=== PATIENT | male | born 1965 | race African-American/Black ===

== ENCOUNTER 2019-08-03 12:50 | Emergency (ER) | payer OTHER, SELFPAY ==
[2019-08-03 13:35] LABS: Hemoglobin 13.9 g/dL (14.0-18.0); Mean Corpuscular HGB CONC 32.7 g/dL (32.0-36.0); Mean Corpuscular Hemoglobin 29.1 pg (27.0-31.0); Mean Corpuscular Volume 89.1 fL (78.0-98.0); Mean Platelet Volume 10.7 fL (7.4-10.4); Platelet Count 126 thou/uL (130-400); RBC Distribution Width 12.8 % (11.5-14.5); Red Blood Cell (RBC) Count 4.76 mill/uL (4.70-6.10); White Blood Cell (WBC) Count 3.1 thou/uL (4.8-10.8)
[2019-08-03 13:56] LABS: Eosinophils 3 % (0-10); Large Platelets SLIGHT; Lymphocytes 50 % (21-51); MDiff Complete? YES; Monocytes 8 % (0-10); Neutrophil 28 % (42-75); Platelet Morphology Comment Appears Decreased; RBC Morphology Normal; Reactive Lymphocytes 9 % (0-10)
[2019-08-03] MEDS ORDERED: Ketorolac Tromethamine 30 MG/ML VIAL ONE (13:58)
[2019-08-03 14:02] LABS: ALT (SGPT) 13 U/L (8-55); AST (SGOT) 14 U/L (5-34); Albumin 4.5 g/dL (3.5-5.0); Alkaline Phosphatase 49 U/L (40-110); Anion Gap 9 mmol/L (10-20); BUN (Urea Nitrogen) 15 mg/dL (8.4-25.7); Bilirubin, Total 0.7 mg/dL (0.2-1.2); Calc. Creatinine Clearance 0 mL/min (70-130); Calcium 9.3 mg/dL (7.8-10.44); Carbon Dioxide 31 mmol/L (22-29); Chloride 102 mmol/L (98-107); Estimated GFR-MDRD 78; Globulin 2.7 g/dL (2.4-3.5); Glucose 80 mg/dL (70-105); Lipase 5 U/L (8-78); Potassium 4.3 mmol/L (3.5-5.1); Protein, Total 7.2 g/dL (6.0-8.3); Sodium 138 mmol/L (136-145)
== END 2019-08-03 14:59 | disposition home or self-care (01) ==
LOC: ERS 12:50
DX: S16.1XXA Strain of muscle, fascia and tendon at neck level, initial encounter (principal); I10 Essential (primary) hypertension; Z79.899 Other long term (current) drug therapy; V49.40XA Driver injured in collision with unspecified motor vehicles in traffic accident, initial encounter
CPT/HCPCS: 36415; 80053; 83690; 84484; 85025; 93005; 96374; J1885

== ENCOUNTER 2022-08-19 14:30 | Inpatient (IN) | payer OTHER, SELFPAY ==
[~2022-08-19 14:30] MED LIST: Iopamidol-370 76% 500 ML 1 ML ONE
[2022-08-19 15:05] LABS: #Eosinphils 0.1 thou/uL (0.0-0.7); #Lymphocytes 2.5 thou/uL (1.20-3.40); #Monocytes 0.5 thou/uL (0.11-0.59); #Neutrophils 3.2 thou/uL (1.40-6.50); %Basophils 0.5 % (0.0-1.0); %Eosinophils 1.2 % (0.0-10.0); %Lymphocytes 39.2 % (21.0-51.0); %Monocytes 7.7 % (0.0-10.0); %Neutrophils 51.5 % (42.0-75.0); Hemoglobin 14.7 g/dL (14.0-18.0); Mean Corpuscular HGB CONC 33.7 g/dL (32.0-36.0); Mean Corpuscular Hemoglobin 30.4 pg (27.0-31.0); Mean Corpuscular Volume 90.3 fl (78.0-98.0); Mean Platelet Volume 10.5 fL (7.4-10.4); Platelet Count 115 10x3/uL (130-400); RBC Distribution Width 13.5 % (11.5-14.5); Red Blood Cell (RBC) Count 4.82 mill/uL (4.70-6.10); White Blood Cell (WBC) Count 6.3 10x3/uL (4.8-10.8)
[2022-08-19 15:13] LABS: ALT (SGPT) 20 U/L (8-55); AST (SGOT) 24 U/L (5-34); Albumin 4.2 g/dL (3.5-5.0); Alkaline Phosphatase 46 U/L (40-110); Anion Gap 14 mmol/L (10-20); BUN (Urea Nitrogen) 19 mg/dL (8.4-25.7); Bilirubin, Total 0.8 mg/dL (0.2-1.2); Calc. Creatinine Clearance 0 mL/min (70-130); Calcium 8.9 mg/dL (7.8-10.44); Carbon Dioxide 24 mmol/L (22-29); Chloride 100 mmol/L (98-107); Estimated GFR 47; Glucose 131 mg/dL (70-105); Potassium 3.7 mmol/L (3.5-5.1); Protein, Total 7.2 g/dL (6.0-8.3); Sodium 134 mmol/L (136-145)
[2022-08-19] MEDS ORDERED: Morphine 2 MG/ML VIAL ONE (15:16)
[2022-08-19 15:20] LABS: Acetaminophen Less than 10.0 mcg/mL (10.0-30.0); Alcohol 32 mg/dL (Less than 10); CK (CPK) 152 U/L (30-200); Salicylate Less than 8.0 mg/dL (15.0-30.0)
[2022-08-19] MEDS ORDERED: NOREPINEPHRINE 8 MG/250 ML-D5W 250 ML ONE (15:44)
[2022-08-19] MEDS ORDERED: Midazolam HCl 2 mg/2 ml Vial ONE (16:02)
[2022-08-19 16:09] LABS: Bilirubin Negative (Negative); Blood, Urine Negative (Negative); Clarity Clear (Clear); Glucose, Urine (Dipstick) Normal (Negative); Ketone, Urine Negative (Negative); Leukocyte Negative Leu/uL (Negative); Nitrite Negative (Negative); Protein, Urine (Dipstick) 10 mg/dL (Neg-Trace); Specific Gravity, Urine 1.016 (1.002-1.036); Urobilinogen Normal mg/dL (Less than 2)
[2022-08-19] MEDS ORDERED: Bupivacaine HCl 0.5%/Epinephrine 1:200,000/PF 30 ml Vial ONE (16:12)
[2022-08-19] MEDS ORDERED: Thrombin 5000 UNITS/5 ML VIAL ONE (16:12)
[2022-08-19] MEDS ORDERED: fentaNYL PF 100 MCG/2 ML SYRINGE ONE (16:13)
[2022-08-19] MEDS ORDERED: HYDROmorphone 0.5 MG/0.5 ML SYRINGE ONE (16:14)
[2022-08-19] MEDS ORDERED: SUGAMMADEX SODIUM 200 MG/2 ML VIAL ONE (16:14)
[2022-08-19 16:17] LABS: Amphetamine Not Detected (NotDetected); Barbiturates Screen Not Detected (NotDetected); Benzodiazepine Screen Not Detected (NotDetected); Cocaine Metabolite Screen Not Detected (NotDetected); Methadone Not Detected (NotDetected); Methamphetamine Not Detected (NotDetected); Opiate Screen Not Detected (NotDetected); Oxycodone Screen Not Detected (NotDetected); Phencyclidine (PCP) Not Detected (NotDetected); THC/Cannabinoid Screen Not Detected (NotDetected); Tricyclic Screen Not Detected (NotDetected)
[2022-08-19] MEDS ORDERED: Dextrose 5% in Water 1,000 ML IV PRN (16:41)
[2022-08-19] MEDS ORDERED: Dextrose 50% Abboject 50 ML SYRINGE SLOW IVP PRN (16:41)
[2022-08-19] MEDS ORDERED: Morphine 2 MG/ML VIAL SLOW IVP PRN (16:41)
[2022-08-19] MEDS ORDERED: Ipratropium/Albuterol 3 ML NEB NEB PRN (16:41)
[2022-08-19] MEDS ORDERED: Morphine 4 MG/ML VIAL SLOW IVP PRN ×2 (16:41→22:13)
[2022-08-19] MEDS ORDERED: TETANUS, DIPHTHERIA TOX,ADULT (TDVAX) 0.5 ML VIAL IM ONE (16:41)
[2022-08-19] MEDS ORDERED: Ondansetron ODT 4 MG TAB PO PRN (16:41)
[2022-08-19] MEDS ORDERED: Ondansetron PF 4 MG/2 ML Vial IVP PRN (16:41)
[2022-08-19] MEDS ORDERED: Cyclobenzaprine 10 MG TAB PO PRN (16:49)
[2022-08-19 16:56] LABS: SARS-CoV-2 NAA Rapid Test Not Detected (NotDetected)
[2022-08-19] MEDS ORDERED: Rocuronium Bromide 10 MG/ML (10ML VIAL) ONE (17:01)
[2022-08-19] MEDS ORDERED: Lidocaine 1% PF 5 ML VIAL ONE (17:01)
[2022-08-19] MEDS ORDERED: Dexamethasone 20 MG/5 ML VIAL ONE (17:01)
[2022-08-19] MEDS ORDERED: PHENYLEPHRINE-NS 100 MCG/ML 10 ML SYRINGE ONE (17:01)
[2022-08-19] MEDS ORDERED: Ondansetron PF 4 MG/2 ML Vial ONE (17:01)
[2022-08-19] MEDS ORDERED: PROPOFOL 200 MG/20 ML VIAL ONE (17:01)
[2022-08-19] MEDS ORDERED: Ketorolac Tromethamine 30 MG/ML VIAL ONE (17:01)
[2022-08-19] MEDS ORDERED: ePHEDrine 50 MG/ML VIAL ONE (17:01)
[2022-08-19 17:21] LABS: Phosphorus 4.3 mg/dL (2.3-4.7)
[2022-08-19 17:23] LABS: Magnesium 1.9 mg/dL (1.6-2.6)
[2022-08-19] MEDS ORDERED: diphenhydrAMINE 50 MG/ML VIAL IVP PRN (20:28)
[2022-08-19] MEDS ORDERED: Bisacodyl 10 MG SUPP PR PRN (20:28)
[2022-08-19] MEDS ORDERED: HYDROcodone/Acetaminophen 10/325 mg Tablet PO PRN ×2 (20:28)
[2022-08-19] MEDS ORDERED: Famotidine/PF 20 mg/2ml Vial SLOW IVP SCH (21:00)
[2022-08-19 22:06] VITALS: BMI 32.1
[2022-08-19 22:34] LABS: #Lymphocytes 0.8 thou/uL (1.20-3.40); #Monocytes 0.5 thou/uL (0.11-0.59); #Neutrophils 6.6 thou/uL (1.40-6.50); %Basophils 0.3 % (0.0-1.0); %Eosinophils 0.2 % (0.0-10.0); %Lymphocytes 9.7 % (21.0-51.0); %Neutrophils 83.9 % (42.0-75.0); Hemoglobin 12.5 g/dL (14.0-18.0); Mean Corpuscular HGB CONC 32.5 g/dL (32.0-36.0); Mean Corpuscular Hemoglobin 29.9 pg (27.0-31.0); Mean Corpuscular Volume 91.8 fl (78.0-98.0); Mean Platelet Volume 10.5 fL (7.4-10.4); Platelet Count 97 10x3/uL (130-400); RBC Distribution Width 13.5 % (11.5-14.5); Red Blood Cell (RBC) Count 4.19 mill/uL (4.70-6.10); White Blood Cell (WBC) Count 7.9 10x3/uL (4.8-10.8)
[2022-08-19 22:49] LABS: Anion Gap 15 mmol/L (10-20); BUN (Urea Nitrogen) 18 mg/dL (8.4-25.7); Calc. Creatinine Clearance 88 mL/min (70-130); Calcium 8.3 mg/dL (7.8-10.44); Carbon Dioxide 21 mmol/L (22-29); Chloride 106 mmol/L (98-107); Estimated GFR 59; Glucose 165 mg/dL (70-105); Lactic Acid 3.1 mmol/L (0.5-2.2); Magnesium 1.9 mg/dL (1.6-2.6); Phosphorus 4.3 mg/dL (2.3-4.7); Potassium 4.5 mmol/L (3.5-5.1); Sodium 137 mmol/L (136-145)
[2022-08-19 22:53] LABS: Troponin I 0.021 ng/mL (< 0.028)
[2022-08-19] MEDS: CEFAZOLIN 2 GM in Sodium Chloride 0.9% 100 ML IVPB SCH (23:02)
[2022-08-19] MEDS: Acetaminophen 500 MG TAB PO SCH (23:02)
[2022-08-19] MEDS: Sodium Chloride 0.9% 1,000 ML IV SCH (23:02)
[2022-08-19] MEDS ORDERED: Sodium Chloride 0.9% 1,000 ML IV SCH (23:15)
[2022-08-19] MEDS: traMADol HCl 50 MG TAB PO SCH (23:16)
[2022-08-19 23:43] LABS: Bacteria/HPF 1+ HPF (None Seen); Bilirubin Negative (Negative); Blood, Urine Trace (Negative); Clarity Clear (Clear); Glucose, Urine (Dipstick) Normal (Negative); Ketone, Urine Negative (Negative); Leukocyte 250 Leu/uL (Negative); Mucous/LPF Rare LPF (<2+); Nitrite Negative (Negative); Protein, Urine (Dipstick) Negative (Neg-Trace); Specific Gravity, Urine 1.031 (1.002-1.036); Squamous Epithelial None Seen HPF (0-3); Urobilinogen Normal mg/dL (Less than 2)
[2022-08-20 04:48] LABS: #Monocytes 0.3 thou/uL (0.11-0.59); #Neutrophils 4.2 thou/uL (1.40-6.50); %Basophils 0.2 % (0.0-1.0); %Eosinophils 0.3 % (0.0-10.0); %Lymphocytes 18.5 % (21.0-51.0); %Monocytes 5.4 % (0.0-10.0); %Neutrophils 75.6 % (42.0-75.0); Hemoglobin 11.2 g/dL (14.0-18.0); Mean Corpuscular HGB CONC 33.8 g/dL (32.0-36.0); Mean Corpuscular Volume 91.7 fl (78.0-98.0); Mean Platelet Volume 9.6 fL (7.4-10.4); Platelet Count 115 10x3/uL (130-400); RBC Distribution Width 13.4 % (11.5-14.5); White Blood Cell (WBC) Count 5.5 10x3/uL (4.8-10.8)
[2022-08-20 05:03] LABS: Anion Gap 10 mmol/L (10-20); BUN (Urea Nitrogen) 15 mg/dL (8.4-25.7); Calc. Creatinine Clearance 107 mL/min (70-130); Calcium 7.7 mg/dL (7.8-10.44); Carbon Dioxide 24 mmol/L (22-29); Chloride 107 mmol/L (98-107); Estimated GFR 75; Glucose 128 mg/dL (70-105); Magnesium 1.7 mg/dL (1.6-2.6); Phosphorus 4.4 mg/dL (2.3-4.7); Potassium 3.8 mmol/L (3.5-5.1); Sodium 137 mmol/L (136-145)
[2022-08-20] MEDS: Sodium Chloride 0.9% 1,000 ML IV SCH ×3 (05:18→16:55)
[2022-08-20] MEDS: traMADol HCl 50 MG TAB PO SCH ×4 (05:18→23:57)
[2022-08-20] MEDS: Acetaminophen 500 MG TAB PO SCH ×4 (05:18→23:58)
[2022-08-20] MEDS ORDERED: Tamsulosin HCl 0.4 MG CAP PO SCH (06:00)
[2022-08-20] MEDS ORDERED: Potassium Chloride 40 MEQ in Premix Bag 1 BAG IVPB SCH (07:15)
[2022-08-20] MEDS ORDERED: Magnesium 2 GM/50 ML(in water) 2 GM in Premix Bag 1 BAG IVPB SCH (07:15)
[2022-08-20] MEDS: CEFAZOLIN 2 GM in Sodium Chloride 0.9% 100 ML IVPB SCH (07:48)
[2022-08-20] MEDS: Polyethylene Glycol 3350 17 GM Packet PO SCH (08:54)
[2022-08-20] MEDS: Tamsulosin HCl 0.4 MG CAP PO SCH (08:54)
[2022-08-20] MEDS: Senokot S 8.6-50 MG TAB PO SCH ×2 (08:54→20:21)
[2022-08-20] MEDS: Gabapentin 300 MG CAP PO SCH ×3 (08:55→20:21)
[2022-08-20] MEDS ORDERED: FLU VACC QS2022-23(6MOS UP)/PF 60 MCG/0.5 ML SYRINGE IM ONE (09:00)
[2022-08-20] MEDS ORDERED: Famotidine/PF 20 mg/2ml Vial SLOW IVP SCH (09:00)
[2022-08-20] MEDS: Famotidine 20 MG TAB PO SCH (20:20)
[2022-08-21] MEDS: traMADol HCl 50 MG TAB PO SCH ×3 (06:26→18:37)
[2022-08-21] MEDS: Acetaminophen 500 MG TAB PO SCH (06:26)
[2022-08-21 07:48] LABS: #Eosinphils 0.1 thou/uL (0.0-0.7); #Lymphocytes 0.9 thou/uL (1.20-3.40); #Monocytes 0.5 thou/uL (0.11-0.59); #Neutrophils 3.9 thou/uL (1.40-6.50); %Basophils 0.3 % (0.0-1.0); %Eosinophils 1.2 % (0.0-10.0); %Lymphocytes 17.1 % (21.0-51.0); %Monocytes 9.5 % (0.0-10.0); %Neutrophils 71.9 % (42.0-75.0); Hemoglobin 10.8 g/dL (14.0-18.0); Mean Corpuscular HGB CONC 31.5 g/dL (32.0-36.0); Mean Corpuscular Hemoglobin 29.6 pg (27.0-31.0); Mean Corpuscular Volume 93.9 fl (78.0-98.0); Platelet Count 132 10x3/uL (130-400); Red Blood Cell (RBC) Count 3.65 mill/uL (4.70-6.10); White Blood Cell (WBC) Count 5.4 10x3/uL (4.8-10.8)
[2022-08-21 07:54] LABS: #Eosinphils 0.1 thou/uL (0.0-0.7); #Lymphocytes 0.9 thou/uL (1.20-3.40); #Monocytes 0.7 thou/uL (0.11-0.59); #Neutrophils 3.7 thou/uL (1.40-6.50); %Basophils 0.4 % (0.0-1.0); %Eosinophils 1.2 % (0.0-10.0); %Lymphocytes 17.3 % (21.0-51.0); %Monocytes 12.2 % (0.0-10.0); %Neutrophils 68.9 % (42.0-75.0); Hemoglobin 10.5 g/dL (14.0-18.0); Mean Corpuscular HGB CONC 31.6 g/dL (32.0-36.0); Mean Corpuscular Hemoglobin 29.4 pg (27.0-31.0); Mean Platelet Volume 9.4 fL (7.4-10.4); Platelet Count 128 10x3/uL (130-400); RBC Distribution Width 13.7 % (11.5-14.5); Red Blood Cell (RBC) Count 3.58 mill/uL (4.70-6.10); White Blood Cell (WBC) Count 5.4 10x3/uL (4.8-10.8)
[2022-08-21] MEDS: Senokot S 8.6-50 MG TAB PO SCH ×2 (09:44→20:15)
[2022-08-21] MEDS: Polyethylene Glycol 3350 17 GM Packet PO SCH (09:44)
[2022-08-21] MEDS: Tamsulosin HCl 0.4 MG CAP PO SCH (09:44)
[2022-08-21] MEDS: Famotidine 20 MG TAB PO SCH ×2 (09:45→20:13)
[2022-08-21] MEDS: Acetaminophen/Codeine 30-300mg Tablet PO SCH ×3 (09:45→20:12)
[2022-08-21] MEDS: Gabapentin 300 MG CAP PO SCH ×3 (09:45→20:13)
[2022-08-21 10:17] LABS: Anion Gap 10 mmol/L (10-20); BUN (Urea Nitrogen) 16 mg/dL (8.4-25.7); Calc. Creatinine Clearance 111 mL/min (70-130); Calcium 8.3 mg/dL (7.8-10.44); Carbon Dioxide 25 mmol/L (22-29); Chloride 105 mmol/L (98-107); Estimated GFR 77; Glucose 121 mg/dL (70-105); Magnesium 2.2 mg/dL (1.6-2.6); Phosphorus 3.1 mg/dL (2.3-4.7); Potassium 4.2 mmol/L (3.5-5.1); Sodium 136 mmol/L (136-145)
[2022-08-21] MEDS: Acetaminophen 325 MG TAB PO SCH ×2 (12:43→18:37)
[2022-08-21] MEDS: CEFAZOLIN 2 GM in Sodium Chloride 0.9% 100 ML IVPB SCH (15:48)
[2022-08-22] MEDS: Acetaminophen 325 MG TAB PO SCH ×2 (00:36→05:40)
[2022-08-22] MEDS: traMADol HCl 50 MG TAB PO SCH ×5 (00:36→23:39)
[2022-08-22] MEDS: CEFAZOLIN 2 GM in Sodium Chloride 0.9% 100 ML IVPB SCH ×4 (00:37→23:39)
[2022-08-22] MEDS: Acetaminophen/Codeine 30-300mg Tablet PO SCH ×6 (02:54→21:56)
[2022-08-22] MEDS ORDERED: Morphine 2 MG/ML VIAL SLOW IVP PRN (07:20)
[2022-08-22] MEDS: Tamsulosin HCl 0.4 MG CAP PO SCH (08:16)
[2022-08-22] MEDS: Senokot S 8.6-50 MG TAB PO SCH ×2 (08:16→21:55)
[2022-08-22] MEDS: Famotidine 20 MG TAB PO SCH ×2 (08:16→21:56)
[2022-08-22] MEDS: Polyethylene Glycol 3350 17 GM Packet PO SCH (08:16)
[2022-08-22] MEDS: Gabapentin 300 MG CAP PO SCH ×3 (08:23→21:55)
[2022-08-22] MEDS ORDERED: Acetaminophen/Codeine 30-300mg Tablet PO SCH (08:30)
[2022-08-22] MEDS: Scopolamine 1.5 mg/72 hour Patch TD SCH (08:30)
[2022-08-22] MEDS ORDERED: Amlodipine 5 MG TAB PO SCH (09:00)
[2022-08-22] MEDS ORDERED: Labetalol HCl 100 MG/20 ML VIAL SLOW IVP PRN (12:26)
[2022-08-22] MEDS ORDERED: Amlodipine 10 MG TAB PO SCH (14:45)
[2022-08-22] MEDS: Atorvastatin Calcium 10 MG TAB PO SCH (21:56)
[2022-08-22] MEDS: Metoprolol Tartrate 25 MG TAB PO SCH (21:56)
[2022-08-22] MEDS: Ibuprofen 200 MG TAB PO SCH (21:56)
[2022-08-23] MEDS: Acetaminophen/Codeine 30-300mg Tablet PO SCH ×4 (02:51→20:17)
[2022-08-23] MEDS: traMADol HCl 50 MG TAB PO SCH ×4 (06:16→23:56)
[2022-08-23] MEDS: Ibuprofen 200 MG TAB PO SCH ×2 (06:16→15:08)
[2022-08-23] MEDS: Polyethylene Glycol 3350 17 GM Packet PO SCH (08:27)
[2022-08-23] MEDS: CEFAZOLIN 2 GM in Sodium Chloride 0.9% 100 ML IVPB SCH (08:27)
[2022-08-23] MEDS: Senokot S 8.6-50 MG TAB PO SCH ×2 (08:29→20:16)
[2022-08-23] MEDS: Gabapentin 300 MG CAP PO SCH ×3 (08:29→20:17)
[2022-08-23] MEDS: Tamsulosin HCl 0.4 MG CAP PO SCH (08:30)
[2022-08-23] MEDS: Metoprolol Tartrate 25 MG TAB PO SCH (08:30)
[2022-08-23] MEDS: Amlodipine 10 MG TAB PO SCH (08:30)
[2022-08-23] MEDS: Famotidine 20 MG TAB PO SCH ×2 (08:30→20:18)
[2022-08-23] MEDS ORDERED: Ibuprofen 200 MG TAB PO PRN (16:18)
[2022-08-23] MEDS: Atorvastatin Calcium 10 MG TAB PO SCH (20:18)
[2022-08-23] MEDS ORDERED: Metoprolol Tartrate 25 MG TAB PO SCH (21:00)
[2022-08-24] MEDS: Acetaminophen/Codeine 30-300mg Tablet PO SCH ×4 (01:33→20:26)
[2022-08-24] MEDS: traMADol HCl 50 MG TAB PO SCH ×3 (05:20→17:38)
[2022-08-24] MEDS: Tamsulosin HCl 0.4 MG CAP PO SCH (09:13)
[2022-08-24] MEDS: Gabapentin 300 MG CAP PO SCH ×3 (09:14→20:25)
[2022-08-24] MEDS: Amlodipine 10 MG TAB PO SCH (09:14)
[2022-08-24] MEDS: Senokot S 8.6-50 MG TAB PO SCH ×2 (09:14→20:25)
[2022-08-24] MEDS: Polyethylene Glycol 3350 17 GM Packet PO SCH (09:14)
[2022-08-24] MEDS: Atorvastatin Calcium 10 MG TAB PO SCH (20:26)
[2022-08-25] MEDS: traMADol HCl 50 MG TAB PO SCH ×3 (00:03→12:04)
[2022-08-25] MEDS: Acetaminophen/Codeine 30-300mg Tablet PO SCH ×3 (02:31→14:36)
[2022-08-25] MEDS: Gabapentin 300 MG CAP PO SCH (09:31)
[2022-08-25] MEDS: Amlodipine 10 MG TAB PO SCH (09:31)
[2022-08-25] MEDS: Scopolamine 1.5 mg/72 hour Patch TD SCH (09:32)
[2022-08-25] MEDS: Tamsulosin HCl 0.4 MG CAP PO SCH (09:32)
[2022-08-25] MEDS: Senokot S 8.6-50 MG TAB PO SCH (09:43)
[2022-08-25] MEDS: Polyethylene Glycol 3350 17 GM Packet PO SCH (09:43)
[2022-08-25 12:20] VITALS: BP 137/85; TEMP 98
== END 2022-08-25 14:00 | disposition home or self-care (01) | DRG 459 ==
LOC: ERS 14:30 → SDC/OP 16:50 → CCU 21:24 → SJJU 08-20 17:59
PROVIDERS: ADMIT Surgery; ATTEND Surgery
PROC: 02HV33Z Insertion of Infusion Device into Superior Vena Cava, Percutaneous Approach (ICD-10-PCS; principal; 2022-08-19)
PROC: 0RGA071 Fusion of Thoracolumbar Vertebral Joint with Autologous Tissue Substitute, Posterior Approach, Posterior Column, Open Approach (ICD-10-PCS; 2022-08-19)
PROC: 0SG0071 Fusion of Lumbar Vertebral Joint with Autologous Tissue Substitute, Posterior Approach, Posterior Column, Open Approach (ICD-10-PCS; 2022-08-19)
PROC: 01NB0ZZ Release Lumbar Nerve, Open Approach (ICD-10-PCS; 2022-08-19)
PROC: 01N80ZZ Release Thoracic Nerve, Open Approach (ICD-10-PCS; 2022-08-19)
PROC: 00QT0ZZ Repair Spinal Meninges, Open Approach (ICD-10-PCS; 2022-08-19)
PROC: 3E043XZ Introduction of Vasopressor into Central Vein, Percutaneous Approach (ICD-10-PCS; 2022-08-19)
PROC: 30233R1 Transfusion of Nonautologous Platelets into Peripheral Vein, Percutaneous Approach (ICD-10-PCS; 2022-08-20)
DX: S32.019A Unspecified fracture of first lumbar vertebra, initial encounter for closed fracture (principal); R57.8 Other shock; N17.9 Acute kidney failure, unspecified; G96.11 Dural tear; S32.029A Unspecified fracture of second lumbar vertebra, initial encounter for closed fracture; V89.2XXA Person injured in unspecified motor-vehicle accident, traffic, initial encounter; M48.061 Spinal stenosis, lumbar region without neurogenic claudication; I10 Essential (primary) hypertension; Z20.822 Contact with and (suspected) exposure to COVID-19; D69.6 Thrombocytopenia, unspecified; R33.9 Retention of urine, unspecified; I95.9 Hypotension, unspecified; E86.0 Dehydration; I44.0 Atrioventricular block, first degree; S33.111A Dislocation of L1/L2 lumbar vertebra, initial encounter; S23.171A Dislocation of T12/L1 thoracic vertebra, initial encounter; Z79.899 Other long term (current) drug therapy
CPT/HCPCS: 36415; 36416; 36430; 36556; 51702; 70450; 71045; 71260; 72125; 72170; 74177; 80048; 80053; 80306; 80307; 81003; 81015; 82550; 83605; 83735; 84100; 84484; 85025; 86850; 86900; 86901; 93005; 93306; 93880; 96365; 96375; C1713; C1768; C1776; C1889; J1100; J1170; J1650; J1885; J2250; J2272; J2405; J2704; J3475; J3480; J3490; J7050; P9035; Q9967; S0028; U0002

== ENCOUNTER 2022-10-01 14:23 | Outpatient (CLI) | payer OTHER | END 2022-10-01 14:24 | disposition home or self-care (01) | LOC: TBSIIMAG 14:23 | PROVIDERS: ATTEND Neurological Surgery | DX: M54.50 Low back pain, unspecified (principal) | CPT/HCPCS: 72070; 72100 ==